=== PATIENT | female | born 1945 | race Caucasian/White ===

== ENCOUNTER → 2021-10-13 | Day surgery (SDC) | payer BC ==
[~2021-10-13] MED LIST: KETAMINE HCL 200 MG/20 ML VIAL ONE; KETOROLAC TROMETHAMINE 30 MG/1 ML VIAL ONE
== END | disposition home or self-care (01) ==
LOC: JASU-ENDO 04:37
PROVIDERS: ATTEND Internal Medicine Gastroenterology
DX: Z53.8 Procedure and treatment not carried out for other reasons (principal)